=== PATIENT | male | born 1975 | race Caucasian/White ===

== ENCOUNTER 2020-12-09 11:30 | Inpatient (IN) ==
[2020-12-09 12:34] LABS: Basophils % 0.3 % (0.0-0.8); Eosinophils # 0.2 10*3/uL (0.0-0.87); Eosinophils % 2.3 % (0.00-10.9); Hematocrit 33.1 VOL% (42.0-52.0); Immature Granulocytes % 0.5 %; Immature Granulocytes Absolute 0.04 #; Lymphocytes # 0.7 10*3/uL (1.4-4.0); Lymphocytes % 9.2 % (21.2-54.2); Mean Corpuscular HGB Conc 33.2 GM/DL (32-36); Mean Platelet Volume 11.4 FL (9.6-12.0); Monocytes % 6.3 % (1.7-12.7); NRBC # 0.02 10*3/uL; Neutrophils % 81.4 % (38.7-73.9); Platelet Count 188 T/CUMM (130-400); Red Blood Count 3.52 MC/CUMM (3.8-5.5); Red Cell Distribution Width 14.2 % (9.3-17.3); White Blood Count 7.8 T/CUMM (4-12)
[2020-12-09 12:52] LABS: Albumin 3.8 G/DL (3.4-5.0); Bilirubin,Total 0.8 MG/DL (0.20-1.00); Calcium 8.7 MG/DL (8.5-10.1); Osmolality,Calculated 278.8 MOS/KG (273-304); Total Protein 7.2 G/DL (6.4-8.2)
[2020-12-09 13:23] LABS: PT Patient Result 76.6 SECS (10.5-12.0)
[2020-12-09] MEDS ORDERED: ONDANSETRON 4 MG/2 ML VIAL IV PRN (14:57)
[2020-12-09] MEDS ORDERED: GLUCAGON 1 MG VIAL IM PRN (14:57)
[2020-12-09] MEDS ORDERED: DEXTROSE 50% 25 GM/50 ML VIAL IV PRN (14:57)
[2020-12-09] MEDS ORDERED: SODIUM CHLORIDE 0.9% 1,000 ML IV PRN (15:06)
[2020-12-09] MEDS ORDERED: PHYTONADIONE 5 MG/5 ML ORAL.SYR PO STA (15:14)
[2020-12-09] MEDS ORDERED: BENZONATATE 100 MG CAPSULE PO PRN (15:25)
[2020-12-09 18:14] LABS: Hematocrit 34.1 VOL% (42.0-52.0); Hemoglobin 11.2 GM/DL (14.0-18.0)
[2020-12-09] MEDS: SODIUM CHLORIDE 0.9% 1,000 ML IV SCH (19:14)
[2020-12-09] MEDS: NICOTINE 21 MG/24 HR PATCH TRANSDERM PRN (19:18)
[2020-12-09] MEDS: SIMVASTATIN 10 MG TABLET PO SCH (19:18)
[2020-12-09] MEDS: cloNIDine 0.1 MG TABLET PO SCH (21:20)
[2020-12-09] MEDS: DIAZEPAM 2 MG TABLET PO SCH (21:21)
[2020-12-09] MEDS: carvediloL 6.25 MG TABLET PO SCH (21:21)
[2020-12-10 01:06] LABS: Basophils % 0.3 % (0.0-0.8); Eosinophils # 0.1 10*3/uL (0.0-0.87); Eosinophils % 1.7 % (0.00-10.9); Hematocrit 29.2 VOL% (42.0-52.0); Hemoglobin 9.6 GM/DL (14.0-18.0); Immature Granulocytes % 0.7 %; Immature Granulocytes Absolute 0.05 #; Lymphocytes # 1.2 10*3/uL (1.4-4.0); Lymphocytes % 16.3 % (21.2-54.2); Mean Corpuscular HGB Conc 32.9 GM/DL (32-36); Mean Corpuscular Volume 95.4 FL (87-102); Mean Platelet Volume 11.6 FL (9.6-12.0); NRBC # 0.04 10*3/uL; Platelet Count 164 T/CUMM (130-400); Red Blood Count 3.06 MC/CUMM (3.8-5.5); Red Cell Distribution Width 14.3 % (9.3-17.3); White Blood Count 7.5 T/CUMM (4-12)
[2020-12-10 01:29] LABS: Calcium 8.3 MG/DL (8.5-10.1); Osmolality,Calculated 273.2 MOS/KG (273-304)
[2020-12-10 01:32] LABS: Eosinophils 1 % (0-10); Lymphocytes 12 % (20-55); Platelet Estimate Normal; Segmented Neutrophils 71 % (50-85)
[2020-12-10 01:33] LABS: Hypochromasia Slight; Total Cells Counted 100
[2020-12-10 01:34] LABS: INR 2.7; PT Patient Result 27.9 SECS (10.5-12.0)
[2020-12-10] MEDS ORDERED: SODIUM CHLORIDE 0.9% 1,000 ML IV PRN ×2 (02:31→13:34)
[2020-12-10 05:55] LABS: Hematocrit 27.4 VOL% (42.0-52.0); Hemoglobin 9.4 GM/DL (14.0-18.0)
[2020-12-10] MEDS: carvediloL 6.25 MG TABLET PO SCH ×2 (08:45→22:04)
[2020-12-10] MEDS: cloNIDine 0.1 MG TABLET PO SCH ×2 (08:45→22:05)
[2020-12-10] MEDS: DIAZEPAM 2 MG TABLET PO SCH ×3 (08:46→22:04)
[2020-12-10] MEDS: CETIRIZINE 10 MG TABLET PO SCH (08:46)
[2020-12-10] MEDS ORDERED: ceFAZolin 2,000 MG/50 ML DUPLEX IV ONE (11:00)
[2020-12-10 12:57] LABS: Hematocrit 27.8 VOL% (42.0-52.0); Hemoglobin 9.2 GM/DL (14.0-18.0)
[2020-12-10] MEDS: SIMVASTATIN 10 MG TABLET PO SCH (16:00)
[2020-12-10] MEDS: SODIUM CHLORIDE 0.9% 1,000 ML IV SCH (23:09)
[2020-12-11 04:47] LABS: Basophils % 0.2 % (0.0-0.8); Eosinophils # 0.3 10*3/uL (0.0-0.87); Hematocrit 28.7 VOL% (42.0-52.0); Hemoglobin 9.1 GM/DL (14.0-18.0); Immature Granulocytes % 0.7 %; Immature Granulocytes Absolute 0.06 #; Lymphocytes # 1.9 10*3/uL (1.4-4.0); Mean Corpuscular HGB Conc 31.7 GM/DL (32-36); Mean Platelet Volume 11.4 FL (9.6-12.0); Monocytes % 17.6 % (1.7-12.7); NRBC # 0.03 10*3/uL; Neutrophils % 54.5 % (38.7-73.9); Platelet Count 181 T/CUMM (130-400); Red Blood Count 2.96 MC/CUMM (3.8-5.5); Red Cell Distribution Width 14.3 % (9.3-17.3); White Blood Count 8.2 T/CUMM (4-12)
[2020-12-11 05:00] LABS: Calcium 8.2 MG/DL (8.5-10.1); Osmolality,Calculated 274.8 MOS/KG (273-304); Potassium 3.9 MMOL/L (3.5-5.1)
[2020-12-11 05:45] LABS: Anisocytosis 2+; Band Neutrophils 7 % (0-10); Eosinophils 2 % (0-10); Lymphocytes 26 % (20-55); Platelet Estimate Normal; Segmented Neutrophils 49 % (50-85); Total Cells Counted 100
[2020-12-11] MEDS ORDERED: BUPIVACAINE MPF 0.25% 30 ML VIAL ONE (06:28)
[2020-12-11] MEDS ORDERED: LIDOCAINE 1%/EPI INJ 20 ML VIAL ONE (06:28)
[2020-12-11] MEDS ORDERED: propofoL 200 MG/20 ML VIAL IV ONE (06:46)
[2020-12-11] MEDS ORDERED: SEVOFLURANE 1 UNIT/15 MINUTE INH ONE (06:46)
[2020-12-11] MEDS ORDERED: MIDAZOLAM 2 MG/2 ML VIAL ONE (06:46)
[2020-12-11] MEDS ORDERED: LIDOCAINE 2% 5 ML VIAL ONE (06:46)
[2020-12-11] MEDS ORDERED: SUCCINYLCHOLINE 200 MG/10 ML VIAL ONE (06:46)
[2020-12-11] MEDS ORDERED: ETOMIDATE 40 MG/20 ML VIAL IV ONE (06:46)
[2020-12-11] MEDS ORDERED: fentaNYL 100 MCG/2 ML VIAL ONE (06:46)
[2020-12-11] MEDS ORDERED: ROCURONIUM 50 MG/5 ML VIAL IV ONE (06:46)
[2020-12-11] MEDS ORDERED: DEXAMETHASONE 4 MG/1 ML VIAL ONE (07:37)
[2020-12-11] MEDS ORDERED: ONDANSETRON 4 MG/2 ML VIAL ONE (07:37)
[2020-12-11] MEDS ORDERED: SUGAMMADEX 200 MG/2 ML VIAL IV ONE (07:52)
[2020-12-11] MEDS ORDERED: ALBUTEROL/IPRATROPIUM 3 ML NEB RESP TX ONE (08:12)
[2020-12-11] MEDS: SODIUM CHLORIDE 0.9% 1,000 ML IV SCH ×2 (08:47→08:50)
[2020-12-11] MEDS: CETIRIZINE 10 MG TABLET PO SCH (09:53)
[2020-12-11] MEDS: cloNIDine 0.1 MG TABLET PO SCH ×2 (09:53→20:29)
[2020-12-11] MEDS: NICOTINE 21 MG/24 HR PATCH TRANSDERM PRN (09:53)
[2020-12-11] MEDS: carvediloL 6.25 MG TABLET PO SCH ×2 (09:53→20:30)
[2020-12-11] MEDS: DIAZEPAM 2 MG TABLET PO SCH ×3 (09:54→20:30)
[2020-12-11] MEDS: SIMVASTATIN 10 MG TABLET PO SCH (16:44)
[2020-12-12 05:39] LABS: Basophils % 0.1 % (0.0-0.8); Hematocrit 27.3 VOL% (42.0-52.0); Hemoglobin 8.8 GM/DL (14.0-18.0); Immature Granulocytes % 0.9 %; Immature Granulocytes Absolute 0.12 #; Lymphocytes # 1.3 10*3/uL (1.4-4.0); Lymphocytes % 10.5 % (21.2-54.2); Mean Corpuscular HGB Conc 32.2 GM/DL (32-36); Mean Corpuscular Volume 96.8 FL (87-102); Mean Platelet Volume 11.1 FL (9.6-12.0); Monocytes % 8.3 % (1.7-12.7); NRBC # 0.02 10*3/uL; Neutrophils % 80.2 % (38.7-73.9); Platelet Count 203 T/CUMM (130-400); Red Blood Count 2.82 MC/CUMM (3.8-5.5); Red Cell Distribution Width 14.1 % (9.3-17.3); White Blood Count 12.7 T/CUMM (4-12)
[2020-12-12 05:48] LABS: Calcium 8.3 MG/DL (8.5-10.1); Potassium 4.6 MMOL/L (3.5-5.1)
[2020-12-12 06:18] LABS: INR 1.1; PT Patient Result 12.1 SECS (10.5-12.0)
[2020-12-12] MEDS: carvediloL 6.25 MG TABLET PO SCH ×2 (09:11→20:55)
[2020-12-12] MEDS: DIAZEPAM 2 MG TABLET PO SCH ×3 (09:11→20:55)
[2020-12-12] MEDS: cloNIDine 0.1 MG TABLET PO SCH ×2 (09:11→20:55)
[2020-12-12] MEDS: CETIRIZINE 10 MG TABLET PO SCH (09:11)
[2020-12-12] MEDS ORDERED: TUBERCULIN SKIN TEST 0.1 ML SYRINGE INTRADERM ONE (09:28)
[2020-12-12] MEDS ORDERED: ACETAMINOPHEN 325 MG TABLET PO PRN (11:52)
[2020-12-12] MEDS: MORPHINE 2 MG/1 ML SYRINGE IV PRN (12:21)
[2020-12-12] MEDS: oxyCODONE/ACETAMINOPHEN 5-325 MG TABLET PO PRN ×2 (14:00→21:04)
[2020-12-12] MEDS: SODIUM CHLORIDE 0.9% 1,000 ML IV SCH ×2 (15:20)
[2020-12-12] MEDS: SIMVASTATIN 10 MG TABLET PO SCH (17:21)
[2020-12-13] MEDS: SODIUM CHLORIDE 0.9% 1,000 ML IV SCH ×2 (00:41→16:06)
[2020-12-13] MEDS: oxyCODONE/ACETAMINOPHEN 5-325 MG TABLET PO PRN ×4 (04:12→21:36)
[2020-12-13 04:19] LABS: PT Patient Result 10.9 SECS (10.5-12.0)
[2020-12-13 04:21] LABS: Basophils % 0.4 % (0.0-0.8); Eosinophils # 0.1 10*3/uL (0.0-0.87); Hematocrit 29.6 VOL% (42.0-52.0); Hemoglobin 9.3 GM/DL (14.0-18.0); Immature Granulocytes % 1.9 %; Immature Granulocytes Absolute 0.19 #; Lymphocytes # 2.6 10*3/uL (1.4-4.0); Lymphocytes % 25.7 % (21.2-54.2); Mean Corpuscular HGB Conc 31.4 GM/DL (32-36); Mean Platelet Volume 11.3 FL (9.6-12.0); Monocytes % 6.2 % (1.7-12.7); NRBC # 0.06 10*3/uL; Neutrophils % 64.8 % (38.7-73.9); Platelet Count 239 T/CUMM (130-400); Red Blood Count 2.93 MC/CUMM (3.8-5.5); Red Cell Distribution Width 14.5 % (9.3-17.3)
[2020-12-13 04:52] LABS: Hypochromasia 1+
[2020-12-13 04:53] LABS: Anisocytosis 1+; Polychromasia Slight
[2020-12-13 04:54] LABS: Platelet Estimate Normal
[2020-12-13] MEDS: cloNIDine 0.1 MG TABLET PO SCH ×2 (08:16→21:37)
[2020-12-13] MEDS: CETIRIZINE 10 MG TABLET PO SCH (08:16)
[2020-12-13] MEDS: DIAZEPAM 2 MG TABLET PO SCH ×3 (08:16→21:37)
[2020-12-13] MEDS: carvediloL 6.25 MG TABLET PO SCH ×2 (08:17→21:37)
[2020-12-13] MEDS: MORPHINE 2 MG/1 ML SYRINGE IV PRN (12:29)
[2020-12-13] MEDS: SIMVASTATIN 10 MG TABLET PO SCH (16:06)
[2020-12-14] MEDS: MORPHINE 2 MG/1 ML SYRINGE IV PRN ×3 (02:08→20:23)
[2020-12-14] MEDS: SODIUM CHLORIDE 0.9% 1,000 ML IV SCH ×3 (05:47→20:30)
[2020-12-14] MEDS: oxyCODONE/ACETAMINOPHEN 5-325 MG TABLET PO PRN ×4 (05:47→22:37)
[2020-12-14 05:51] LABS: Basophils # 0.1 10*3/uL (0.0-0.2); Basophils % 0.7 % (0.0-0.8); Eosinophils # 0.3 10*3/uL (0.0-0.87); Eosinophils % 4.7 % (0.00-10.9); Hematocrit 28.1 VOL% (42.0-52.0); Hemoglobin 8.9 GM/DL (14.0-18.0); Immature Granulocytes % 2.2 %; Immature Granulocytes Absolute 0.16 #; Lymphocytes % 27.8 % (21.2-54.2); Mean Corpuscular HGB Conc 31.7 GM/DL (32-36); Mean Corpuscular Volume 97.9 FL (87-102); Mean Platelet Volume 10.7 FL (9.6-12.0); Monocytes % 9.7 % (1.7-12.7); NRBC # 0.03 10*3/uL; Neutrophils % 54.9 % (38.7-73.9); Platelet Count 251 T/CUMM (130-400); Red Blood Count 2.87 MC/CUMM (3.8-5.5); Red Cell Distribution Width 14.5 % (9.3-17.3); White Blood Count 7.2 T/CUMM (4-12)
[2020-12-14 06:18] LABS: PT Patient Result 10.8 SECS (10.5-12.0)
[2020-12-14 06:44] LABS: Hypochromasia 1+
[2020-12-14 06:45] LABS: Microcytosis 1+; Platelet Estimate Normal
[2020-12-14] MEDS: cloNIDine 0.1 MG TABLET PO SCH ×2 (08:00→20:31)
[2020-12-14] MEDS: CETIRIZINE 10 MG TABLET PO SCH (08:01)
[2020-12-14] MEDS: DIAZEPAM 2 MG TABLET PO SCH ×3 (08:01→20:31)
[2020-12-14] MEDS: carvediloL 6.25 MG TABLET PO SCH (08:01)
[2020-12-14] MEDS: SIMVASTATIN 10 MG TABLET PO SCH (17:21)
[2020-12-14] MEDS: carvediloL 12.5 MG TABLET PO SCH (20:30)
[2020-12-15 02:56] LABS: Basophils % 0.6 % (0.0-0.8); Eosinophils # 0.3 10*3/uL (0.0-0.87); Eosinophils % 3.8 % (0.00-10.9); Hematocrit 26.2 VOL% (42.0-52.0); Hemoglobin 8.4 GM/DL (14.0-18.0); Immature Granulocytes % 2.5 %; Immature Granulocytes Absolute 0.17 #; Lymphocytes # 1.7 10*3/uL (1.4-4.0); Mean Corpuscular HGB Conc 32.1 GM/DL (32-36); Monocytes % 10.3 % (1.7-12.7); NRBC # 0.05 10*3/uL; Neutrophils % 57.8 % (38.7-73.9); Platelet Count 232 T/CUMM (130-400); Red Cell Distribution Width 14.5 % (9.3-17.3); White Blood Count 6.8 T/CUMM (4-12)
[2020-12-15 03:29] LABS: Eosinophils 5 % (0-10); Lymphocytes 27 % (20-55); Nucleated Red Blood Cells 1 (0-5); Platelet Estimate Increased; Polychromasia 1+; Segmented Neutrophils 63 % (50-85); Total Cells Counted 100
[2020-12-15] MEDS: SODIUM CHLORIDE 0.9% 1,000 ML IV SCH ×2 (03:53→09:49)
[2020-12-15] MEDS: oxyCODONE/ACETAMINOPHEN 5-325 MG TABLET PO PRN ×3 (04:18→15:28)
[2020-12-15] MEDS: hydrALAZINE 20 MG/1 ML VIAL IV PRN ×3 (06:13→15:30)
[2020-12-15] MEDS: cloNIDine 0.1 MG TABLET PO SCH ×2 (08:30→20:16)
[2020-12-15] MEDS: CETIRIZINE 10 MG TABLET PO SCH (08:31)
[2020-12-15] MEDS: carvediloL 12.5 MG TABLET PO SCH ×2 (08:32→20:16)
[2020-12-15] MEDS: DIAZEPAM 2 MG TABLET PO SCH ×3 (08:32→20:16)
[2020-12-15] MEDS: MORPHINE 2 MG/1 ML SYRINGE IV PRN ×2 (11:40→20:17)
[2020-12-15] MEDS: CLOPIDOGREL 75 MG TABLET PO SCH (14:25)
[2020-12-15] MEDS: SIMVASTATIN 10 MG TABLET PO SCH (16:15)
[2020-12-16] MEDS: oxyCODONE/ACETAMINOPHEN 5-325 MG TABLET PO PRN ×4 (00:05→22:35)
[2020-12-16] MEDS: MORPHINE 2 MG/1 ML SYRINGE IV PRN ×3 (04:17→20:08)
[2020-12-16 07:14] LABS: Basophils % 0.3 % (0.0-0.8); Eosinophils # 0.3 10*3/uL (0.0-0.87); Eosinophils % 4.7 % (0.00-10.9); Hematocrit 27.8 VOL% (42.0-52.0); Hemoglobin 8.7 GM/DL (14.0-18.0); Immature Granulocytes % 1.9 %; Immature Granulocytes Absolute 0.14 #; Lymphocytes # 1.5 10*3/uL (1.4-4.0); Lymphocytes % 21.4 % (21.2-54.2); Mean Corpuscular HGB Conc 31.3 GM/DL (32-36); Mean Corpuscular Volume 98.2 FL (87-102); Mean Platelet Volume 10.1 FL (9.6-12.0); NRBC # 0.02 10*3/uL; Neutrophils % 62.7 % (38.7-73.9); Platelet Count 251 T/CUMM (130-400); Red Blood Count 2.83 MC/CUMM (3.8-5.5); Red Cell Distribution Width 14.8 % (9.3-17.3); White Blood Count 7.2 T/CUMM (4-12)
[2020-12-16] MEDS: hydrALAZINE 20 MG/1 ML VIAL IV PRN ×2 (07:23→15:11)
[2020-12-16] MEDS: CETIRIZINE 10 MG TABLET PO SCH (08:31)
[2020-12-16] MEDS: cloNIDine 0.1 MG TABLET PO SCH ×2 (08:31→20:07)
[2020-12-16] MEDS: CLOPIDOGREL 75 MG TABLET PO SCH (08:31)
[2020-12-16] MEDS: DIAZEPAM 2 MG TABLET PO SCH ×3 (08:32→20:07)
[2020-12-16] MEDS: carvediloL 12.5 MG TABLET PO SCH ×2 (08:32→20:07)
[2020-12-16] MEDS: SIMVASTATIN 10 MG TABLET PO SCH (17:15)
[2020-12-17] MEDS: oxyCODONE/ACETAMINOPHEN 5-325 MG TABLET PO PRN ×2 (04:49→08:44)
[2020-12-17 07:12] LABS: Basophils % 0.2 % (0.0-0.8); Eosinophils # 0.4 10*3/uL (0.0-0.87); Eosinophils % 4.4 % (0.00-10.9); Hemoglobin 9.2 GM/DL (14.0-18.0); Immature Granulocytes % 1.9 %; Immature Granulocytes Absolute 0.16 #; Lymphocytes # 1.6 10*3/uL (1.4-4.0); Lymphocytes % 19.2 % (21.2-54.2); Mean Corpuscular HGB Conc 31.7 GM/DL (32-36); Mean Platelet Volume 9.9 FL (9.6-12.0); Monocytes % 9.8 % (1.7-12.7); NRBC # 0.02 10*3/uL; Neutrophils % 64.5 % (38.7-73.9); Platelet Count 245 T/CUMM (130-400); Red Blood Count 2.99 MC/CUMM (3.8-5.5); White Blood Count 8.3 T/CUMM (4-12)
[2020-12-17] MEDS: cloNIDine 0.1 MG TABLET PO SCH (08:44)
[2020-12-17] MEDS: CLOPIDOGREL 75 MG TABLET PO SCH (08:45)
[2020-12-17] MEDS: carvediloL 12.5 MG TABLET PO SCH (08:45)
[2020-12-17] MEDS: CETIRIZINE 10 MG TABLET PO SCH (08:45)
[2020-12-17 12:11] VITALS: BP 165/96
== END 2020-12-17 17:09 | disposition home or self-care (01) | DRG 951 ==
LOC: N.EDINP 11:30 → N.ED 11:30 → SUATTDRO 14:57 → N.TELEN 16:05 → SUATTDRO 12-10 14:58
PROVIDERS: ADMIT Internal Medicine; ATTEND Internal Medicine Geriatric Medicine